=== PATIENT | female | born 1990 | race Hispanic/Latino ===

== ENCOUNTER 2023-05-03 16:23 | Emergency (ER) | payer OTHER ==
[~2023-05-03] VITALS: Ht 160 cm; Wt 81.6 kg
[2023-05-03 16:30] VITALS: TEMP 98.6
[2023-05-03 16:46] VITALS: BP 156/87
[2023-05-03 17:40] LABS: PLATELET COUNT 280 K/uL (152-353)
[2023-05-03 17:54] LABS: POTASSIUM 3.9 mmol/L (3.6-5.2)
== END 2023-05-03 18:30 | disposition home or self-care (01) ==
LOC: ED 16:23
PROVIDERS: Family Medicine
DX: R55 Syncope and collapse (principal); F17.210 Nicotine dependence, cigarettes, uncomplicated
CPT/HCPCS: 80053; 80307; 81000; 81025; 85027; 87086; 87088; 93005; 99283